=== PATIENT | male | born 1985 | race Two or more races ===

== ENCOUNTER 2018-02-28 01:25 | Emergency (ER) | payer OTHER ==
[~2018-02-28] VITALS: Ht 175.3 cm; Wt 86.0 kg
[2018-02-28 01:26] VITALS: BP 144/92
[2018-02-28] MEDS ORDERED: PROPARACAINE OPHTH 0.5%, 15ML ONE (01:39)
[2018-02-28] MEDS ORDERED: FLUORESCEIN OPHTHALMIC 1 MG STRIP ONE (01:39)
[2018-02-28] MEDS ORDERED: FLUORESCEIN OPHTHALMIC 1 MG STRIP EACHEYE ONE (02:00)
[2018-02-28] MEDS ORDERED: PROPARACAINE OPHTH 0.5%, 15ML EACHEYE ONE (02:00)
== END 2018-02-28 02:40 | disposition home or self-care (01) ==
LOC: ED 02:34
DX: H10.213 Acute toxic conjunctivitis, bilateral (principal); Z77.098 Contact with and (suspected) exposure to other hazardous, chiefly nonmedicinal, chemicals
CPT/HCPCS: 99283